=== PATIENT | female | born 1960 | race Caucasian/White ===

== ENCOUNTER 2020-07-22 14:53 | Inpatient (IN) | payer SELFPAY ==
[~2020-07-22] VITALS: Ht 160 cm; Wt 108.0 kg
--- NOTE | 2020-07-22 16:24 | ED Cough/URI ---
General Chief Complaint: Cough/Cold/Flu Symptoms Stated Complaint: LOW O2 Nursing Triage Note: Sent to ED from [facility] clinic. Was seen today due to cough, sore throat, and lost voice x 2.5 weeks. States her other symptoms seem to be improving, but she lost her voice again. Was sent from clinic due to O2 sats of 88% on room air. Brought to ED on portable oxygen with O2 sats 92%. Denies fever or shortness of breath but is tachypneic at 34 respiration/minute. Was rapid tested at clinic and is covid positive. Sepsis Screen: No Definite Risk Source: patient Exam Limitations: no limitations History of Present Illness Date Seen by Provider: Jul 22, 2020 Time Seen by Provider: 16:00 Initial Comments 59-year-old female presents to the ER by private vehicle after she was seen in the [facility] today for 2-1/2 weeks of upper respiratory symptoms and cough. A rapid COVID test was positive and her oxygen saturation on room air was 88 percent, so advised to come to the ER. Patient denies shortness of breath except with exertion, denies chest pain, chest tightness, fever or chills, nausea vomiting or diarrhea. States she is actually feeling better. Allergies and Home Medications Allergies Coded Allergies: metronidazole (Verified Allergy, Unknown, vomiting, 07/22/20) erythromycin base (Verified Adverse Reaction, Unknown, vomiting, 07/22/20) Patient Home Medication List Home Medication List Reviewed: Yes Review of Systems Review of Systems Constitutional: see HPI; No chills, No fever, No malaise, No weakness EENTM: No throat pain, No throat swelling Respiratory: cough; No hemoptysis, No orthopnea; short of breath Cardiovascular: No chest pain, No edema, No palpitations, No syncope Gastrointestinal: No abdominal pain, No diarrhea, No nausea, No vomiting Musculoskeletal: No back pain, No joint pain Past Sjeysov-Jturwc-Vqthol Hx Past Med/Social Hx: Reviewed Nursing Past Med/Soc Hx Patient Social History Alcohol Use: Denies Use Recreational Drug Use: No Smoking Status: Never a Smoker 2nd Hand Smoke Exposure: No Recent Foreign Travel: No Contact w/Someone Who Travel: No Recent Infectious Disease Expo: No Recent Hopitalizations: No Physical Abuse: No Sexual Abuse: No Mistreated: No Fear: No Seasonal Allergies Seasonal Allergies: No Past Medical History Surgeries: Yes Orthopedic, Tubal Ligation Respiratory: No Cardiac: Yes Hypertension Neurological: No Genitourinary: No Gastrointestinal: No Musculoskeletal: No Endocrine: Yes Diabetes, Non-Insulin dep HEENT: No Cancer: No Psychosocial: No Integumentary: No Blood Disorders: No Adverse Reaction/Blood Tranf: No Physical Exam Vital Signs - First Documented 07/22/20 15:09 Temp 36.4 Pulse 71 Resp 34 B/P (MAP) 145/64 (91) Pulse Ox 92 O2 Delivery Nasal Cannula O2 Flow Rate 3.00 Capillary Refill : Less Than 3 Seconds Height: '" Weight: lbs. oz. kg; BMI Method: General Appearance: WD/WN, no apparent distress HEENT: PERRL/EOMI, normal ENT inspection, TMs normal, pharynx normal Neck: supple, normal inspection Respiratory: chest non-tender, lungs clear, normal breath sounds, no respiratory distress, no accessory muscle use Cardiovascular: regular rate, rhythm, no edema, no gallop, no JVD Gastrointestinal: non tender, soft Extremities: non-tender Neurologic/Psychiatric: no motor/sensory deficits, alert, normal mood/affect Progress/Results/Core Measures Suspected Sepsis Recent Fever Within 48 Hours: No Infection Criteria Present: Documented Infection New/Unexplained Altered Menta: No Sepsis Screen: No Definite Risk SIRS Temperature: Pulse: 71 Respiratory Rate: 34 Laboratory Tests 07/22/20 15:20: White Blood Count 6.0 Blood Pressure 145 /64 Mean: 91 Laboratory Tests 07/22/20 15:20: Creatinine 0.73, Platelet Count 295, Total Bilirubin 0.4 Results/Orders Lab Results Laboratory Tests Test 07/22/20 15:20 Range/Units White Blood Count 6.0 4.3-11.0 10^3/uL Red Blood Count 4.22 L 4.35-5.85 10^6/uL Hemoglobin 12.5 11.5-16.0 G/DL Hematocrit 38 35-52 % Mean Corpuscular Volume 89 80-99 FL Mean Corpuscular Hemoglobin 30 25-34 PG Mean Corpuscular Hemoglobin Concent 33 32-36 G/DL Red Cell Distribution Width 13.5 10.0-14.5 % Platelet Count 295 130-400 10^3/uL Mean Platelet Volume 9.8 7.4-10.4 FL Immature Granulocyte % (Auto) 5 % Neutrophils (%) (Auto) 76 H 42-75 % Lymphocytes (%) (Auto) 14 12-44 % Monocytes (%) (Auto) 4 0-12 % Eosinophils (%) (Auto) 0 0-10 % Basophils (%) (Auto) 1 0-10 % Neutrophils # (Auto) 4.6 1.8-7.8 X 10^3 Lymphocytes # (Auto) 0.8 L 1.0-4.0 X 10^3 Monocytes # (Auto) 0.2 0.0-1.0 X 10^3 Eosinophils # (Auto) 0.0 0.0-0.3 10^3/uL Basophils # (Auto) 0.1 0.0-0.1 10^3/uL Immature Granulocyte # (Auto) 0.3 H 0.0-0.1 10^3/uL Neutrophils % (Manual) 56 % Lymphocytes % (Manual) 10 % Monocytes % (Manual) 4 % Eosinophils % (Manual) 0 % Basophils % (Manual) 0 % Myelocytes % 3 % Band Neutrophils 24 % Atypical Lymphocytes 2 % Reactive Lymphocytes 1 % Blood Morphology Comment NORMAL Sodium Level 141 135-145 MMOL/L Potassium Level 4.0 3.6-5.0 MMOL/L Chloride Level 106 98-107 MMOL/L Carbon Dioxide Level 16 L 21-32 MMOL/L Anion Gap 19 H 5-14 MMOL/L Blood Urea Nitrogen 22 H 7-18 MG/DL Creatinine 0.73 0.60-1.30 MG/DL Estimat Glomerular Filtration Rate > 60 BUN/Creatinine Ratio 30 Glucose Level 183 H 70-105 MG/DL Calcium Level 9.3 8.5-10.1 MG/DL Corrected Calcium 9.8 8.5-10.1 MG/DL Total Bilirubin 0.4 0.1-1.0 MG/DL Aspartate Amino Transf (AST/SGOT) 32 5-34 U/L Alanine Aminotransferase (ALT/SGPT) 13 0-55 U/L Alkaline Phosphatase 87 40-136 U/L Total Protein 7.4 6.4-8.2 GM/DL Albumin 3.4 3.2-4.5 GM/DL My Orders Orders - ROVENSTINE,AMAYA L DO Ed Iv/Invasive Line Start (07/22/20 16:42) Cbc With Automated Diff (07/22/20 16:42) Comprehensive Metabolic Panel (07/22/20 16:42) Chest 1 View Ap/Pa Only (07/22/20 16:42) Dexamethasone Injection (Decadron Inje (07/23/20 09:00) Albuterol/Ipra Inhalation Soln (Duoneb I (07/22/20 16:45) Svn Small Volume Nebulizer (07/22/20 16:42) Dexamethasone Injection (Decadron Inje (07/22/20 16:50) Manual Differential (07/22/20 15:20) Influenza A And B Antigens (07/22/20 17:52) Medications Given in ED Current Medications Medications Dose Ordered Sig/Leanne Route Start Time Stop Time Status Last Admin Dose Admin Albuterol/ Ipratropium 3 ml ONCE ONCE INH 07/22/20 16:45 07/22/20 16:46 DC 07/22/20 17:01 3 ML Vital Signs/I&O 07/22/20 07/22/20 15:09 15:14 Temp 36.4 Pulse 71 Resp 34 B/P (MAP) 145/64 (91) Pulse Ox 92 O2 Delivery Nasal Cannula Nasal Cannula O2 Flow Rate 3.00 Capillary Refill : Less Than 3 Seconds Blood Pressure Mean: 91 Progress Note : Progress Note Patient at the tail end of her illness, having symptoms for 2-1/2 weeks and today being the first day she is sought any type of medical care. See history of present illness for details, patient requiring oxygen to remain above 90 percent and desats as low as 82 percent on room air with a short walk in the ER. Denies history of lung disease, sleep apnea or ever needing oxygen prior to today. Diagnostic Imaging Diagonstic Imaging: Xray Comments Date of Exam:07/22/20 CHEST 1 VIEW AP/PA ONLY EXAMINATION: Chest 1 view HISTORY: Hypoxia, Covid. COMPARISON: None available. FINDINGS: There are severe bilateral airspace opacities throughout both lungs. Right costophrenic angle is excluded. No pleural effusion or pneumothorax is seen. Heart size is normal. IMPRESSION: 1. Severe bilateral airspace opacities throughout both lungs consistent with history of COVID-19 infection. Dictated by: Dictated on workstation # [id number] Dict: 07/22/20 1702 Trans: 07/22/20 1079 [facility] [id number] Interpreted by: YUAN ESPINOZA MD Electronically signed by: YUAN ESPINOZA MD 07/22/20 1719 Departure Communication (Admissions) Time/Spoke to Admitting Phy: 17:[address] Grover who accepts for admission Impression Primary Impression: COVID-19 Additional Impression: Hypoxia Disposition: 01 HOME, SELF-CARE Condition: Stable Admissions Decision to Admit Reason: Admit from ER (General) Decision to Admit/Date: Jul 22, 2020 Time/Decision to Admit Time: 17:50 Departure-Patient Inst. Add. Discharge Instructions: All discharge instructions reviewed with patient and/or family. Voiced understanding. AMAYA FERREIRA DO Jul 22, 2020 16:24
[2020-07-22] MEDS ORDERED: RT-ALBUTEROL/IPRATROPIUM 3 ML (DUONEB) VIAL INH ONE (16:45)
--- NOTE | 2020-07-22 17:06 | Diagnostic Imaging Report ---
EXAMINATION: Chest 1 view HISTORY: Hypoxia, Covid. COMPARISON: None available. FINDINGS: There are severe bilateral airspace opacities throughout both lungs. Right costophrenic angle is excluded. No pleural effusion or pneumothorax is seen. Heart size is normal. IMPRESSION: 1. Severe bilateral airspace opacities throughout both lungs consistent with history of COVID-19 infection. Dictated by: Dictated on workstation # [id number]
[2020-07-22 17:10] LABS: HEMATOCRIT 38 % (35-52); HEMOGLOBIN 12.5 G/DL (11.5-16.0); MEAN CORPUSCULAR HEMOGLOBIN 30 PG (25-34); MEAN CORPUSCULAR VOLUME 89 FL (80-99)
[2020-07-22 17:11] LABS: BASOPHILS # (AUTO) 0.1 10^3/uL (0.0-0.1); BASOPHILS % (AUTO) 1 % (0-10); EOSINOPHILS % (AUTO) 0 % (0-10); LYMPHOCYTES # (AUTO) 0.8 X 10^3 (1.0-4.0); LYMPHOCYTES % (AUTO) 14 % (12-44); MEAN CORPUSCULAR HGB CONC 33 G/DL (32-36); MEAN PLATELET VOLUME 9.8 FL (7.4-10.4); MONOCYTES # (AUTO) 0.2 X 10^3 (0.0-1.0); MONOCYTES % (AUTO) 4 % (0-12); NEUTROPHILS # (AUTO) 4.6 X 10^3 (1.8-7.8); NEUTROPHILS % (AUTO) 76 % (42-75); PLATELET COUNT 295 10^3/uL (130-400)
[2020-07-22 17:21] LABS: ATYPICAL LYMPHOCYTES 2 %; BAND NEUTROPHILS 24 %; BASOPHILS % (MANUAL) 0 %; EOSINOPHILS % (MANUAL) 0 %; LYMPHOCYTES % (MANUAL) 10 %; MONOCYTES % (MANUAL) 4 %; MYELOCYTES % 3 %; NEUTROPHILS % (MANUAL) 56 %; RBC MORPH NORMAL; REACTIVE LYMPHOCYTES 1 %
[2020-07-22 17:22] LABS: CARBON DIOXIDE 16 MMOL/L (21-32); CHLORIDE 106 MMOL/L (98-107); SODIUM 141 MMOL/L (135-145)
[2020-07-22 17:23] LABS: ALANINE AMINOTRANSFERASE 13 U/L (0-55); ALBUMIN 3.4 GM/DL (3.2-4.5); ALKALINE PHOSPHATASE 87 U/L (40-136); BILIRUBIN,TOTAL 0.4 MG/DL (0.1-1.0); BUN/CREATININE RATIO 30; CALCIUM 9.3 MG/DL (8.5-10.1); CREATININE SERUM 0.73 MG/DL (0.60-1.30); GFR ESTIMATED > 60; GLUCOSE 183 MG/DL (70-105); TOTAL PROTEIN 7.4 GM/DL (6.4-8.2)
--- NOTE | 2020-07-22 19:40 | NUR ---
ems here report and care given
[2020-07-22] MEDS ORDERED: METF-399 (21:20)
[2020-07-22] MEDS ORDERED: METO50TA7 (21:20)
[2020-07-22] MEDS ORDERED: TELM40TA6 (21:20)
[2020-07-22] MEDS ORDERED: cefTRIAXone FOR IV USE 2,000 MG in WATER (STERILE) FOR INJECTION 20 ML IV SCH (21:30)
[2020-07-22] MEDS ORDERED: ANTACID SUSP 30 ML UDC (MYLANTA) PO PRN (21:30)
[2020-07-22] MEDS ORDERED: diphenhydrAMINE 25 MG TAB (BENADRYL) PO PRN (21:30)
[2020-07-22] MEDS ORDERED: MELATONIN 3 MG TABLET PO PRN (21:30)
[2020-07-22] MEDS ORDERED: AZITHROMYCIN INJECTION 500 MG in NS (IVPB) 250 ML IV ONE (21:30)
[2020-07-22] MEDS ORDERED: ONDANSETRON 4 MG (ZOFRAN) ORAL DISSOLVE TAB PO PRN (21:30)
[2020-07-22] MEDS ORDERED: ONDANSETRON 4 MG/2 ML (SDV) Z0FRAN IV PRN (21:30)
[2020-07-22] MEDS ORDERED: BISACODYL 10 MG SUPP (DULCOLAX) PR PRN (21:30)
[2020-07-22] MEDS ORDERED: polyethylene glycoL POWDER 17 GM (MIRALAX) PACK PO PRN (21:30)
[2020-07-22] MEDS ORDERED: METO50TA7 PO (22:04)
[2020-07-22] MEDS: cefTRIAXone 1,000 MG/SWFI 10 ML IV PUSH IV SCH ×2 (22:56)
[2020-07-22] MEDS: ENOXAPARIN 40 MG/0.4 ML (LOVENOX) SYR SC SCH (22:57)
[2020-07-22] MEDS: meTOproloL SUCCINATE 50 MG (TOPROL XL) TAB PO SCH (22:57)
[2020-07-22 23:31] VITALS: BP 150/67
[2020-07-22 23:46] VITALS: BP 135/64
[2020-07-23] VITALS (7 sets, daily range): BP systolic 112–157; BP diastolic 68–81
[2020-07-23 04:57] LABS: BASOPHILS # (AUTO) 0.1 10^3/uL (0.0-0.1); BASOPHILS % (AUTO) 1 % (0-10); EOSINOPHILS % (AUTO) 0 % (0-10); HEMATOCRIT 39 % (35-52); HEMOGLOBIN 12.1 g/dL (11.5-16.0); LYMPHOCYTES # (AUTO) 0.6 10^3/uL (1.0-4.0); LYMPHOCYTES % (AUTO) 13 % (12-44); MEAN CORPUSCULAR HEMOGLOBIN 29 pg (25-34); MEAN CORPUSCULAR HGB CONC 31 g/dL (32-36); MEAN CORPUSCULAR VOLUME 94 fL (80-99); MEAN PLATELET VOLUME 9.9 fL (9.0-12.2); MONOCYTES # (AUTO) 0.1 10^3/uL (0.0-1.0); MONOCYTES % (AUTO) 2 % (0-12); NEUTROPHILS # (AUTO) 3.4 10^3/uL (1.8-7.8); NEUTROPHILS % (AUTO) 75 % (42-75); PLATELET COUNT 281 10^3/uL (130-400); WHITE BLOOD COUNT 4.6 10^3/uL (4.3-11.0)
[2020-07-23 05:34] LABS: ALBUMIN 3.4 GM/DL (3.2-4.5)
[2020-07-23 05:35] LABS: POTASSIUM 4.5 MMOL/L (3.6-5.0)
[2020-07-23 05:36] LABS: CALCIUM 8.8 MG/DL (8.5-10.1)
[2020-07-23 05:37] LABS: TOTAL PROTEIN 7.1 GM/DL (6.4-8.2)
[2020-07-23 05:39] LABS: BILIRUBIN,TOTAL 0.4 MG/DL (0.1-1.0)
[2020-07-23 05:41] LABS: CREATININE SERUM 1.08 MG/DL (0.60-1.30)
[2020-07-23] MEDS: inSUlin ASPART (NovoLOG) 1 UNIT/0.01 ML (CHARGE PER UNIT) SC SCH ×4 (06:25→23:44)
[2020-07-23] MEDS ORDERED: TELMISARTAN 40 MG (MICARDIS) TAB PO SCH (09:00)
[2020-07-23] MEDS: SENNOSIDES 8.6 MG (SENOKOT) TAB PO SCH ×2 (09:16→21:38)
[2020-07-23] MEDS: LOSARTAN 50 MG (COZAAR) TAB PO SCH (09:16)
[2020-07-23] MEDS: DOCUSATE SODIUM 100 MG (COLACE) CAP PO SCH ×2 (09:16→21:38)
[2020-07-23] MEDS: ENOXAPARIN 40 MG/0.4 ML (LOVENOX) SYR SC SCH ×2 (09:17→23:04)
[2020-07-23] MEDS ORDERED: NS IV 1000 ML 1,000 ML IV SCH (11:25)
[2020-07-23] MEDS ORDERED: 1/2 NS IV SOLUTION 1,000 ML IV ONE (11:32)
[2020-07-23] MEDS ORDERED: POTASSIUM CL 10MEQ/50ML IVPB 50 ML IV ONE (11:32)
[2020-07-23] MEDS ORDERED: D5 1/2 NS 1000 ML IV SOLUTION 1,000 ML IV ONE (11:32)
[2020-07-23 12:27] LABS: CALCIUM 9.2 MG/DL (8.5-10.1)
[2020-07-23 12:31] LABS: CREATININE SERUM 1.16 MG/DL (0.60-1.30)
--- NOTE | 2020-07-23 12:38 | History & Physical-Hospitalist ---
History of Present Illness HPI/Chief Complaint Julia Maya is a 59-year-old female with past medical history of hypertension, diabetes, morbid obesity, who presented with hypoxia. She had been out of the doctor's visit and was found to be hypoxic and was referred to the emergency room. She had been diagnosed with COVID-19 about 2-1/2 weeks ago. He states that she is beginning to feel better. She denies shortness of breath. She denies fevers. She denies abdominal pain, nausea, and vomiting. She denies diarrhea. She has been eating and drinking. She takes metformin and Farxiga for diabetes. Source: patient Exam Limitations: no limitations Date Seen 07/23/20 Time Seen by a Provider: 10:55 Attending Physician Shawna Rhodes MD PCP Lyn Moon Aprn Referring Physician Date of Admission Jul 22, 2020 at 20:40 Home Medications & Allergies Home Medications Reviewed patient Home Medication Reconciliation performed by pharmacy medication reconciliations it service technician and/or nursing. Patients Allergies have been reviewed. Allergies Allergies Coded Allergies metronidazole (Verified Allergy, Unknown, vomiting, 07/22/20) erythromycin base (Verified Adverse Reaction, Unknown, vomiting, 07/22/20) Past Kpflvxf-Ppbahs-Gjterk Hx Past Med/Social Hx: Reviewed Nursing Past Med/Soc Hx Patient Social History Alcohol Use: Denies Use Recreational Drug Use: No Smoking Status: Never a Smoker 2nd Hand Smoke Exposure: No Recent Foreign Travel: No Contact w/other who traveled: No Recent Hopitalizations: No Recent Infectious Disease Expo: No Seasonal Allergies Seasonal Allergies: No Past Medical History Surgeries: Orthopedic, Tubal Ligation Cardiac: Hypertension Endocrine: Diabetes, Non-Insulin dep History of Blood Disorders: No Adverse Reaction to Blood He: No Review of Systems Constitutional: no symptoms reported, see HPI Physical Exam Physical Exam Vital Signs Vital Signs - First Documented 07/22/20 15:09 Temp 36.4 Pulse 71 Resp 34 B/P (MAP) 145/64 (91) Pulse Ox 92 O2 Delivery Nasal Cannula O2 Flow Rate 3.00 Capillary Refill : Less Than 3 Seconds Height, Weight, BMI Height: '" Weight: lbs. oz. kg; 42.18 BMI Method: General Appearance: No Apparent Distress, Obese HEENT: PERRL/EOMI, Pharynx Normal Neck: Normal Inspection, Supple Respiratory: Lungs Clear, Normal Breath Sounds, No Respiratory Distress Cardiovascular: Regular Rate, Rhythm, No Murmur Gastrointestinal: Normal Bowel Sounds, Non Tender, Soft Extremity: Normal Inspection, Non Tender, Pedal Edema Neurologic/Psychiatric: Alert, Oriented x3, No Motor/Sensory Deficits, Normal Mood/Affect Skin: Normal Color, Warm/Dry Results Results/Procedures Labs Laboratory Tests 07/22/20 15:20 07/23/20 04:13 07/23/20 11:50 Patient resulted labs reviewed. Imaging: Reviewed Imaging Report Assessment/Plan Admission Diagnosis Acute respiratory failure due to COVID-19 Admission Status: Inpatient Order (span 2 midnights) Reason for Inpatient Admission: DKA requring insulin drip Assessment and Plan Acute respiratory failure due to COVID-19 COVID+ at outside facility Flu negative Ddimer 2.47 Started on prophylactic Lovenox Procalcitonin normal, antibiotics deferred Started on Decadron Convalescent plasma ordered Remdesivir not indicated, outside treatment window Supplemental oxygen as needed Type 2 diabetes mellitus with ketoacidosis Steroid induced hyperglycemia Blood sugars in mid-200s Bicarb low with high anion gap Beta hydroxybutyrate elevated Begin insulin gtt, DKA protocol Transfer to step down HTN Continue home meds Morbid obesity Clinically significant, no acute management needs DVT Prophylaxis: Lovenox Diagnosis/Problems Diagnosis/Problems (1) Acute respiratory failure due to COVID-19 Status: Acute (2) T2DM (type 2 diabetes mellitus) Status: Acute Qualifiers: Diabetes mellitus retirement insulin use: without long term care administrator use Diabetes mellitus complication status: with ketoacidosis Diabetes mellitus complication detail: without coma Qualified Codes: E11.10 - Type 2 diabetes mellitus with ketoacidosis without coma (3) Steroid-induced hyperglycemia Status: Acute (4) HTN (hypertension) Status: Chronic (5) Morbid obesity Status: Chronic Clinical Quality Measures DVT/VTE Risk/Contraindication: Risk Factor Score Per Nursin RFS Level Per Nursing on Admit: 4+=Very High SHAWNA RHODES MD Jul 23, 2020 12:38
--- NOTE | 2020-07-23 13:15 | NUR ---
Report given to SANTIAGO Nickerson. No questions or concerns voiced. Patient transported to room 511 via wheelchair with portable oxygen at 6L. Patient placed in recliner and hooked up to oxygen in room at 6L. All belongings with patient and call light within reach.
[2020-07-23] MEDS: 1/2 NS IV SOLUTION 1,000 ML IV SCH ×2 (14:30→20:17)
[2020-07-23] MEDS: POTASSIUM CL 10MEQ/50ML IVPB 50 ML IV SCH ×8 (14:30→23:23)
[2020-07-23 14:48] LABS: POTASSIUM 4.7 MMOL/L (3.6-5.0)
[2020-07-23 14:49] LABS: CALCIUM 9.1 MG/DL (8.5-10.1)
[2020-07-23 14:53] LABS: CREATININE SERUM 1.22 MG/DL (0.60-1.30)
[2020-07-23] MEDS: D5 1/2 NS 1000 ML IV SOLUTION 1,000 ML IV SCH (17:44)
[2020-07-23 20:09] LABS: CALCIUM 9.4 MG/DL (8.5-10.1); CREATININE SERUM 1.11 MG/DL (0.60-1.30); POTASSIUM 4.6 MMOL/L (3.6-5.0)
[2020-07-23] MEDS: meTOproloL SUCCINATE 50 MG (TOPROL XL) TAB PO SCH (21:38)
[2020-07-23] MEDS: AZITHROMYCIN 250 MG TAB (ZITHROMAX) PO SCH (21:38)
[2020-07-23] MEDS ORDERED: cefTRIAXone 1,000 MG IV (ROCEPHIN) VIAL ONE (21:55)
[2020-07-23] MEDS ORDERED: WATER (STERILE) FOR INJECTION 10 ML ONE (21:56)
[2020-07-23] MEDS: cefTRIAXone 1,000 MG/SWFI 10 ML IV PUSH IV SCH ×2 (23:03)
[2020-07-23] MEDS: ACETAMINOPHEN 325 MG TABLET PO PRN (23:03)
[2020-07-24] VITALS (9 sets, daily range): BP systolic 133–175; BP diastolic 74–95
[2020-07-24] MEDS: POTASSIUM CL 10MEQ/50ML IVPB 50 ML IV SCH ×4 (01:20→22:00)
[2020-07-24 04:21] LABS: CHLORIDE 108 MMOL/L (98-107); POTASSIUM 4.1 MMOL/L (3.6-5.0); SODIUM 136 MMOL/L (135-145)
[2020-07-24 04:23] LABS: CALCIUM 8.3 MG/DL (8.5-10.1); GLUCOSE 175 MG/DL (70-105)
[2020-07-24 04:24] LABS: CARBON DIOXIDE 15 MMOL/L (21-32)
[2020-07-24 04:27] LABS: CREATININE SERUM 0.89 MG/DL (0.60-1.30); GFR ESTIMATED > 60
[2020-07-24 04:28] LABS: BUN/CREATININE RATIO 29
[2020-07-24] MEDS: D5 1/2 NS 1000 ML IV SOLUTION 1,000 ML IV SCH ×4 (05:59→21:59)
[2020-07-24] MEDS: inSUlin ASPART (NovoLOG) 1 UNIT/0.01 ML (CHARGE PER UNIT) SC SCH ×6 (06:28→20:13)
[2020-07-24] MEDS: DOCUSATE SODIUM 100 MG (COLACE) CAP PO SCH ×2 (08:02→20:12)
[2020-07-24] MEDS: 1/2 NS IV SOLUTION 1,000 ML IV SCH ×5 (08:02→22:44)
[2020-07-24] MEDS: SENNOSIDES 8.6 MG (SENOKOT) TAB PO SCH ×2 (08:03→20:12)
[2020-07-24] MEDS: LOSARTAN 50 MG (COZAAR) TAB PO SCH (08:05)
[2020-07-24] MEDS: ENOXAPARIN 40 MG/0.4 ML (LOVENOX) SYR SC SCH ×2 (09:25→21:59)
--- NOTE | 2020-07-24 11:26 | Progress Note - Hospitalist ---
Subjective HPI/CC On Admission Date Seen by Provider: Jul 24, 2020 Time Seen by Provider: 09:20 Julia Maya is a 59-year-old female with past medical history of hypertension, diabetes, morbid obesity, who presented with hypoxia. She had been out of the doctor's visit and was found to be hypoxic and was referred to the emergency room. She had been diagnosed with COVID-19 about 2-1/2 weeks ago. He states that she is beginning to feel better. She denies shortness of breath. She denies fevers. She denies abdominal pain, nausea, and vomiting. She denies diarrhea. She has been eating and drinking. She takes metformin and Farxiga for diabetes. Subjective/Events-last exam She reports feeling better today. She denies any shortness of breath. She still has a little bit of a cough. She denies any fevers or chills. She denies any nausea or vomiting. She denies any abdominal pain. She denies any diarrhea. She has no other complaints or concerns. Focused Exam Lactate Level 07/22/20 22:35: Lactic Acid Level 0.68 Objective Exam Vital Signs Vital Signs Date Time Temp Pulse Resp B/P (MAP) Pulse Ox O2 Delivery O2 Flow Rate FiO2 07/24/20 08:00 36.8 73 20 134/78 (96) 94 Nasal Cannula 3.00 Capillary Refill : Less Than 3 Seconds General Appearance: No Apparent Distress, Obese Respiratory: Lungs Clear, Normal Breath Sounds, No Respiratory Distress Cardiovascular: Regular Rate, Rhythm, No Edema, No Murmur Gastrointestinal: Normal Bowel Sounds, Non Tender, Soft Extremity: Normal Inspection, Non Tender, No Pedal Edema Neurologic/Psychiatric: Alert, Oriented x3, No Motor/Sensory Deficits, Normal Mood/Affect Skin: Normal Color, Warm/Dry Results/Procedures Lab Laboratory Tests 07/23/20 11:50 07/23/20 14:25 07/23/20 19:10 07/24/20 03:45 Patient resulted labs reviewed. Imaging: Reviewed Imaging Report Assessment/Plan Assessment and Plan Assess & Plan/Chief Complaint Acute respiratory failure due to COVID-19 Decadron Convalescent plasma ordered Remdesivir not indicated, outside treatment window Supplemental oxygen as needed Type 2 diabetes mellitus with ketoacidosis Steroid induced hyperglycemia Remains acidotic with hyperglycemia and elevated ketones Continue insulin gtt High insulin requirements Begin Levemir Add Novolog with meals HTN Continue home meds Morbid obesity Clinically significant, no acute management needs DVT Prophylaxis: Lovenox Diagnosis/Problems Diagnosis/Problems (1) Acute respiratory failure due to COVID-19 Status: Acute (2) T2DM (type 2 diabetes mellitus) Status: Acute Qualifiers: Diabetes mellitus intermodal dispatcher insulin use: without fci use Diabetes mellitus complication status: with ketoacidosis Diabetes mellitus complication detail: without coma Qualified Codes: E11.10 - Type 2 diabetes mellitus with ketoacidosis without coma (3) Steroid-induced hyperglycemia Status: Acute (4) HTN (hypertension) Status: Chronic (5) Morbid obesity Status: Chronic Clinical Quality Measures DVT/VTE Risk/Contraindication: Risk Factor Score Per Nursin RFS Level Per Nursing on Admit: 4+=Very High SHADE RHODES MD Jul 24, 2020 11:26
[2020-07-24] MEDS ORDERED: NS IV 500 ML 500 ML ONE (13:25)
[2020-07-24 19:43] LABS: CHLORIDE 108 MMOL/L (98-107); POTASSIUM 4.2 MMOL/L (3.6-5.0); SODIUM 137 MMOL/L (135-145)
[2020-07-24 19:44] LABS: CALCIUM 8.4 MG/DL (8.5-10.1)
[2020-07-24 19:45] LABS: GLUCOSE 220 MG/DL (70-105)
[2020-07-24 19:46] LABS: CARBON DIOXIDE 16 MMOL/L (21-32)
[2020-07-24 19:48] LABS: CREATININE SERUM 0.77 MG/DL (0.60-1.30); GFR ESTIMATED > 60
[2020-07-24 19:49] LABS: BUN/CREATININE RATIO 29
[2020-07-24] MEDS ORDERED: WATER (STERILE) FOR INJECTION 10 ML ONE (19:57)
[2020-07-24] MEDS ORDERED: cefTRIAXone 1,000 MG IV (ROCEPHIN) VIAL ONE (19:57)
[2020-07-24] MEDS: AZITHROMYCIN 250 MG TAB (ZITHROMAX) PO SCH (20:09)
[2020-07-24] MEDS: meTOproloL SUCCINATE 50 MG (TOPROL XL) TAB PO SCH (20:10)
[2020-07-24] MEDS: ACETAMINOPHEN 325 MG TABLET PO PRN (20:16)
[2020-07-24] MEDS: cefTRIAXone 1,000 MG/SWFI 10 ML IV PUSH IV SCH ×2 (21:58)
[2020-07-25] VITALS: BP 165/87
[2020-07-25] MEDS: POTASSIUM CL 10MEQ/50ML IVPB 50 ML IV SCH ×3 (01:47→07:14)
[2020-07-25] MEDS: D5 1/2 NS 1000 ML IV SOLUTION 1,000 ML IV SCH ×2 (01:48→07:14)
[2020-07-25 03:55] LABS: CHLORIDE 110 MMOL/L (98-107); POTASSIUM 3.9 MMOL/L (3.6-5.0); SODIUM 138 MMOL/L (135-145)
[2020-07-25 03:56] LABS: CALCIUM 8.2 MG/DL (8.5-10.1)
[2020-07-25 03:57] LABS: GLUCOSE 132 MG/DL (70-105)
[2020-07-25 03:58] LABS: CARBON DIOXIDE 17 MMOL/L (21-32)
[2020-07-25 04:00] VITALS: BP 183/97
[2020-07-25 04:00] LABS: CREATININE SERUM 0.66 MG/DL (0.60-1.30); GFR ESTIMATED > 60
[2020-07-25 04:01] LABS: BUN/CREATININE RATIO 26
[2020-07-25] MEDS: LOSARTAN 50 MG (COZAAR) TAB PO SCH ×2 (05:03→08:31)
--- NOTE | 2020-07-25 06:00 | NUR ---
DR. RHODES NOTIFIED OF AM LABS, CURRENT INSULIN GTT AT 3U/ML, CURRENT BLOOD SUGAR OF 110, AND BLOOD PRESSURE OF 170/95 AND THAT AM COZAAR WAS GIVEN ALREADY. INQUIRED ABOUT D/C'ING INSULIN GTT. NO NEW ORDERS AT THIS TIME.
[2020-07-25] MEDS: inSUlin ASPART (NovoLOG) 1 UNIT/0.01 ML (CHARGE PER UNIT) SC SCH ×7 (06:20→21:31)
[2020-07-25 08:00] VITALS: BP 179/94
[2020-07-25] MEDS: SENNOSIDES 8.6 MG (SENOKOT) TAB PO SCH ×2 (08:31→21:30)
[2020-07-25] MEDS: DOCUSATE SODIUM 100 MG (COLACE) CAP PO SCH ×2 (08:31→21:30)
[2020-07-25] MEDS: CARVEDILOL 12.5 MG (COREG) TABLET PO SCH ×2 (08:32→21:30)
[2020-07-25] MEDS: 1/2 NS IV SOLUTION 1,000 ML IV SCH ×6 (09:41→23:28)
[2020-07-25] MEDS: ENOXAPARIN 40 MG/0.4 ML (LOVENOX) SYR SC SCH ×2 (09:42→21:30)
--- NOTE | 2020-07-25 12:24 | Progress Note - Hospitalist ---
Subjective HPI/CC On Admission Date Seen by Provider: Jul 25, 2020 Time Seen by Provider: 10:20 Julia Maya is a 59-year-old female with past medical history of hypertension, diabetes, morbid obesity, who presented with hypoxia. She had been out of the doctor's visit and was found to be hypoxic and was referred to the emergency room. She had been diagnosed with COVID-19 about 2-1/2 weeks ago. He states that she is beginning to feel better. She denies shortness of breath. She denies fevers. She denies abdominal pain, nausea, and vomiting. She denies diarrhea. She has been eating and drinking. She takes metformin and Farxiga for diabetes. Subjective/Events-last exam she is feeling better. She has no complaints or concerns. She denies any shortness of breath. She denies any cough. She denies any fevers. She denies any nausea or vomiting. She denies any abdominal pain. She denies any chest pain. She has been eating and drinking without issue. Focused Exam Lactate Level 07/22/20 22:35: Lactic Acid Level 0.68 Objective Exam Vital Signs Vital Signs Date Time Temp Pulse Resp B/P (MAP) Pulse Ox O2 Delivery O2 Flow Rate FiO2 07/25/20 08:00 36.4 72 16 179/94 (122) 95 Nasal Cannula 2.00 Capillary Refill : Less Than 3 Seconds General Appearance: No Apparent Distress, Obese Respiratory: Lungs Clear, Normal Breath Sounds, No Respiratory Distress Cardiovascular: Regular Rate, Rhythm, No Edema, No Murmur Gastrointestinal: Normal Bowel Sounds, Non Tender, Soft Extremity: Normal Inspection, No Pedal Edema Neurologic/Psychiatric: Alert, Oriented x3, No Motor/Sensory Deficits, Normal Mood/Affect Skin: Normal Color, Warm/Dry Results/Procedures Lab Laboratory Tests 07/24/20 19:17 07/25/20 03:33 Patient resulted labs reviewed. Imaging: Reviewed Imaging Report Assessment/Plan Assessment and Plan Assess & Plan/Chief Complaint Acute respiratory failure due to COVID-19 Decadron s/p 1 unit convalescent plasma Remdesivir not indicated, outside treatment window Supplemental oxygen as needed, requirement improving Type 2 diabetes mellitus with ketoacidosis Steroid induced hyperglycemia Acidosis improved, anion gap closed Transition off insulin gtt Levemir 30 units this morning Novolog 10 units with meals Add sliding scale C Transfer to 4th floor HTN Increase Losartan Transition from Toprol to Coreg Hydralazine as needed Morbid obesity Clinically significant, no acute management needs DVT Prophylaxis: Lovenox Diagnosis/Problems Diagnosis/Problems (1) Acute respiratory failure due to COVID-19 Status: Acute (2) T2DM (type 2 diabetes mellitus) Status: Acute Qualifiers: Diabetes mellitus intermodal truck driver insulin use: without intermodal truck driver use Diabetes mellitus complication status: with ketoacidosis Diabetes mellitus complication detail: without coma Qualified Codes: E11.10 - Type 2 diabetes mellitus with ketoacidosis without coma (3) Steroid-induced hyperglycemia Status: Acute (4) HTN (hypertension) Status: Chronic (5) Morbid obesity Status: Chronic Clinical Quality Measures DVT/VTE Risk/Contraindication: Risk Factor Score Per Nursin RFS Level Per Nursing on Admit: 4+=Very High SHADE RHODES MD Jul 25, 2020 12:24
[2020-07-25 16:03] VITALS: BP 180/86
[2020-07-25] MEDS: NS IV 1000 ML 1,000 ML IV SCH (16:30)
[2020-07-25] MEDS: CEFDINIR 300 MG (OMNICEF) CAP PO SCH (21:30)
[2020-07-25 23:28] VITALS: BP 185/85
[2020-07-26] MEDS ORDERED: inSUlin ASPART (NovoLOG) 1 UNIT/0.01 ML (CHARGE PER UNIT) SC ONE
[2020-07-26] MEDS: NS IV 1000 ML 1,000 ML IV SCH (02:22)
[2020-07-26] MEDS: 1/2 NS IV SOLUTION 1,000 ML IV SCH (03:31)
[2020-07-26 03:39] VITALS: BP 193/99
[2020-07-26] MEDS: hydrALAZINE (APRESOLINE) 25 MG TAB PO PRN ×2 (03:50→16:49)
[2020-07-26 06:00] VITALS: BP 175/84
[2020-07-26 06:16] LABS: CHLORIDE 112 MMOL/L (98-107); POTASSIUM 3.7 MMOL/L (3.6-5.0); SODIUM 144 MMOL/L (135-145)
[2020-07-26 06:18] LABS: CALCIUM 8.6 MG/DL (8.5-10.1); GLUCOSE 68 MG/DL (70-105)
[2020-07-26 06:19] LABS: CARBON DIOXIDE 19 MMOL/L (21-32)
[2020-07-26 06:22] LABS: CREATININE SERUM 0.62 MG/DL (0.60-1.30); GFR ESTIMATED > 60
[2020-07-26 06:23] LABS: BUN/CREATININE RATIO 24
[2020-07-26] MEDS: inSUlin ASPART (NovoLOG) 1 UNIT/0.01 ML (CHARGE PER UNIT) SC SCH ×6 (06:45→22:07)
[2020-07-26 08:00] VITALS: BP 191/92
[2020-07-26] MEDS ORDERED: amLODIPine 5 MG (NORVASC) TAB PO SCH (09:00)
[2020-07-26] MEDS: LOSARTAN 50 MG (COZAAR) TAB PO SCH (10:08)
[2020-07-26] MEDS: CARVEDILOL 12.5 MG (COREG) TABLET PO SCH ×2 (10:09→22:07)
[2020-07-26] MEDS: ENOXAPARIN 40 MG/0.4 ML (LOVENOX) SYR SC SCH ×2 (10:09→22:08)
[2020-07-26] MEDS: SENNOSIDES 8.6 MG (SENOKOT) TAB PO SCH ×2 (10:09→21:52)
[2020-07-26] MEDS: CEFDINIR 300 MG (OMNICEF) CAP PO SCH ×2 (10:09→22:07)
[2020-07-26] MEDS: DOCUSATE SODIUM 100 MG (COLACE) CAP PO SCH ×2 (10:11→21:52)
[2020-07-26] MEDS ORDERED: inSUlin ASPART (NovoLOG) 1 UNIT/0.01 ML (CHARGE PER UNIT) SC SCH (12:00)
[2020-07-26 12:35] VITALS: BP 169/91
[2020-07-26 16:12] VITALS: BP 198/91
--- NOTE | 2020-07-26 16:44 | Progress Note - Hospitalist ---
Subjective HPI/CC On Admission Date Seen by Provider: Jul 26, 2020 Time Seen by Provider: 11:15 Julia Maya is a 59-year-old female with past medical history of hypertension, diabetes, morbid obesity, who presented with hypoxia. She had been out of the doctor's visit and was found to be hypoxic and was referred to the emergency room. She had been diagnosed with COVID-19 about 2-1/2 weeks ago. He states that she is beginning to feel better. She denies shortness of breath. She denies fevers. She denies abdominal pain, nausea, and vomiting. She denies diarrhea. She has been eating and drinking. She takes metformin and Farxiga for diabetes. Subjective/Events-last exam She reports feeling better today. She is not having any shortness of breath. She is not having fevers. She denies nausea and vomiting. She denies abdominal pain. Objective Exam Vital Signs Vital Signs Date Time Temp Pulse Resp B/P (MAP) Pulse Ox O2 Delivery O2 Flow Rate FiO2 07/26/20 16:12 37.0 72 20 198/91 (126) 95 Nasal Cannula 2.00 Capillary Refill : Less Than 3 Seconds General Appearance: No Apparent Distress, Obese Respiratory: Lungs Clear, Normal Breath Sounds, No Respiratory Distress Cardiovascular: Regular Rate, Rhythm, No Edema, No Murmur Gastrointestinal: Normal Bowel Sounds, Non Tender, Soft Extremity: Normal Inspection, Non Tender, No Pedal Edema Neurologic/Psychiatric: Alert, Oriented x3, No Motor/Sensory Deficits, Normal Mood/Affect Skin: Normal Color, Warm/Dry Results/Procedures Lab Laboratory Tests 07/26/20 05:22 Patient resulted labs reviewed. Imaging: Reviewed Imaging Report Assessment/Plan Assessment and Plan Assess & Plan/Chief Complaint Acute respiratory failure due to COVID-19 Decadron s/p 1 unit convalescent plasma Remdesivir not indicated, outside treatment window Supplemental oxygen as needed, requirement improving Type 2 diabetes mellitus with hypoglycemia Steroid induced hyperglycemia Blood sugar 55 this morning Decrease Levemir Decrease Novolog Switch to sliding scale B ASHLEY Cr improved IV fluids HTN Losartan Coreg Add Amlodipine Hydralazine as needed Morbid obesity Clinically significant, no acute management needs DVT Prophylaxis: Lovenox Diagnosis/Problems Diagnosis/Problems (1) Acute respiratory failure due to COVID-19 Status: Acute (2) T2DM (type 2 diabetes mellitus) Status: Acute Qualifiers: Diabetes mellitus mcfp insulin use: without middle or intermediate school principal use Diabetes mellitus complication status: with ketoacidosis Diabetes mellitus complication detail: without coma Qualified Codes: E11.10 - Type 2 diabetes mellitus with ketoacidosis without coma (3) Steroid-induced hyperglycemia Status: Acute (4) HTN (hypertension) Status: Chronic (5) Morbid obesity Status: Chronic (6) ASHLEY (acute kidney injury) Status: Acute Clinical Quality Measures DVT/VTE Risk/Contraindication: Risk Factor Score Per Nursin RFS Level Per Nursing on Admit: 4+=Very High SHADE RHODES MD Jul 26, 2020 16:44
[2020-07-27] VITALS (7 sets, daily range): BP systolic 154–199; BP diastolic 79–94
[2020-07-27] MEDS: hydrALAZINE (APRESOLINE) 25 MG TAB PO PRN (01:00)
[2020-07-27 06:06] LABS: CHLORIDE 107 MMOL/L (98-107); POTASSIUM 3.5 MMOL/L (3.6-5.0); SODIUM 142 MMOL/L (135-145)
[2020-07-27 06:08] LABS: CALCIUM 8.4 MG/DL (8.5-10.1); GLUCOSE 129 MG/DL (70-105)
[2020-07-27 06:09] LABS: CARBON DIOXIDE 21 MMOL/L (21-32)
[2020-07-27 06:12] LABS: CREATININE SERUM 0.63 MG/DL (0.60-1.30); GFR ESTIMATED > 60
[2020-07-27 06:13] LABS: BUN/CREATININE RATIO 22
[2020-07-27] MEDS: inSUlin ASPART (NovoLOG) 1 UNIT/0.01 ML (CHARGE PER UNIT) SC SCH ×4 (06:50→11:35)
[2020-07-27] MEDS: DOCUSATE SODIUM 100 MG (COLACE) CAP PO SCH ×2 (08:48→09:52)
[2020-07-27] MEDS: SENNOSIDES 8.6 MG (SENOKOT) TAB PO SCH ×2 (08:48→09:52)
[2020-07-27] MEDS: CEFDINIR 300 MG (OMNICEF) CAP PO SCH (08:53)
[2020-07-27] MEDS: CARVEDILOL 12.5 MG (COREG) TABLET PO SCH (08:53)
[2020-07-27] MEDS: LOSARTAN 50 MG (COZAAR) TAB PO SCH (08:54)
[2020-07-27] MEDS: ENOXAPARIN 40 MG/0.4 ML (LOVENOX) SYR SC SCH (08:57)
[2020-07-27] MEDS ORDERED: amLODIPine 5 MG (NORVASC) TAB PO SCH (09:00)
--- NOTE | 2020-07-27 10:01 | Discharge Inst-Simple/Standard ---
Discharge Inst-Standard Discharge Medications New, Converted or Re-Newed RX: Transmitted to Pharmacy Patient Instructions/Follow Up Plan of Care/Instructions/FU: Please continue to take your medications as written. Please follow up with Dr Hahn to follow up this hospital stay. Activity as Tolerated: Yes Discharge Diet: No Restrictions Return to The Hospital For: Chest pain, shortness of breath, fever, elevated blood sugars or blood pressures, confusion, weakness, oxygen levels less than 90, if you feel you are getting worse. GERDA STONE MD Jul 27, 2020 10:01
[2020-07-27] MEDS ORDERED: INSU100V5 SQ (10:05)
[2020-07-27] MEDS ORDERED: DEXA6TAB6 PO (10:05)
[2020-07-27] MEDS ORDERED: INSU100V16 SC (10:05)
--- NOTE | 2020-07-27 12:00 | NUR ---
Patient walked 112 feet on room air. Patient didn't need oxygen at this time. Addendum: 07/27/20 at 1201 by LAUREL BOOTH RT Amended: Links added.
--- NOTE | 2020-07-27 13:06 | Discharge Summary ---
Diagnosis/Chief Complaint Date of Admission Jul 22, 2020 at 20:40 Date of Discharge Discharge Date: Jul 27, 2020 Admission Diagnosis Acute respiratory failure due to COVID-19 [facility] [employer] Discharge Diagnosis (1) Acute respiratory failure due to COVID-19 Status: Acute (2) T2DM (type 2 diabetes mellitus) Status: Acute (3) Steroid-induced hyperglycemia Status: Acute (4) HTN (hypertension) Status: Chronic (5) Morbid obesity Status: Chronic (6) ASHLEY (acute kidney injury) Status: Acute Discharge Summary Discharge Physical Exam Allergies: Coded Allergies: metronidazole (Verified Allergy, Unknown, vomiting, 07/22/20) erythromycin base (Verified Adverse Reaction, Unknown, vomiting, 07/22/20) Vitals & I&Os Vital Signs Date Time Temp Pulse Resp B/P (MAP) Pulse Ox O2 Delivery O2 Flow Rate FiO2 07/27/20 11:33 69 18 154/79 (104) 93 Room Air 07/27/20 11:16 2.00 07/27/20 04:19 36.5 Hospital Course Labs (last 24 hrs) Laboratory Tests 07/26/20 16:11: Glucometer 268H 07/26/20 21:30: Glucometer 232H 07/27/20 05:09: Sodium Level 142, Potassium Level 3.5L, Chloride Level 107, Carbon Dioxide Level 21, Anion Gap 14, Blood Urea Nitrogen 14, Creatinine 0.63, Estimat Glomerular Filtration Rate > 60, BUN/Creatinine Ratio 22, Glucose Level 129H, Calcium Level 8.4L 07/27/20 11:28: Glucometer 164H Microbiology 07/22/20 Blood Culture - Preliminary, Resulted No growth 07/22/20 Influenza Types A,B Antigen ([facility]A) - Final, Complete Patient resulted labs reviewed. Pending Labs Laboratory Tests 07/27/20 05:09: Sodium Level 142, Potassium Level 3.5, Chloride Level 107, Carbon Dioxide Level 21, Anion Gap 14, Blood Urea Nitrogen 14, Creatinine 0.63, Estimat Glomerular Filtration Rate > 60, BUN/Creatinine Ratio 22, Glucose Level 129, Calcium Level 8.4 07/27/20 11:28: Glucometer 164 Imaging: Reviewed Imaging Report Discharge Home Medications: Active Scripts Active Levemir (Insulin Determir) 1,000 Units/10 Ml Soln 15 Unit SQ BID Novolog (Insulin Aspart) 100 Unit/1 Ml Susp 8 Unit SC AC Decadron (Dexamethasone) 6 Mg Tablet 6 Mg PO DAILY Metoprolol Succinate 50 Mg Tab.er.24h 50 Mg PO DAILY 30 Days tAKE ONE TAB DAILY BY MOUTH AT BEDTIME. Reported Metformin HCl 1,000 Mg Tablet Telmisartan 40 Mg Tablet Instructions to patient/family Please see electronic discharge instructions given to patient. Clinical Quality Measures DVT/VTE Risk/Contraindication: Risk Factor Score Per Nursin RFS Level Per Nursing on Admit: 4+=Very High Problem Qualifiers (1) T2DM (type 2 diabetes mellitus): Diabetes mellitus fci insulin use: without fci use Diabetes mellitus complication status: with ketoacidosis Diabetes mellitus complication detail: without coma Qualified Codes: E11.10 - Type 2 diabetes mellitus with ketoacidosis without coma GERDA STONE MD Jul 27, 2020 13:06
--- NOTE | 2020-07-27 15:45 | NUR ---
Diabetic Education orders rec'd. Rapport established with patient, motivational interviewing leads to discussion of previous strategies used to treat diabetes, and enc. of returning to diabetic basics to find the areas she most needs help with for proper blood sugar control. Packet given/accepted, states, "will look through it more when I get home." Patient's ride arrives at hospital, and she states she is ready to go. Patient packed up with belongings and brought to door to meet ride by floor staff.
== END 2020-07-27 16:48 | disposition home or self-care (01) | DRG 177 ==
LOC: EDUNIT# 14:53 → ER FS 14:56 → 4TH 20:40 → CSD 07-23 13:15 → 4TH 07-25 13:50
PROVIDERS: ADMIT Internal Medicine; ATTEND Internal Medicine
PROC: XW13325 Transfusion of Convalescent Plasma (Nonautologous) into Peripheral Vein, Percutaneous Approach, New Technology Group 5 (ICD-10-PCS; principal; 2020-07-24)
DX: U07.1 COVID-19 (principal); J96.01 Acute respiratory failure with hypoxia; E11.10 Type 2 diabetes mellitus with ketoacidosis without coma; Z68.41 Body mass index [BMI] 40.0-44.9, adult; N17.9 Acute kidney failure, unspecified; I10 Essential (primary) hypertension; E11.65 Type 2 diabetes mellitus with hyperglycemia; T38.0X5A Adverse effect of glucocorticoids and synthetic analogues, initial encounter; E66.01 Morbid (severe) obesity due to excess calories; Z79.84 Long term (current) use of oral hypoglycemic drugs; Z73.0 Burn-out
CPT/HCPCS: 36415; 71045; 80048; 80053; 82010; 82962; 83036; 83605; 84145; 85007; 85025; 85027; 85379; 86850; 86900; 86901; 87040; 87804; 94760; 94761